=== PATIENT | male | born 1960 | race Two or more races ===

== ENCOUNTER 2019-07-28 13:00 | Outpatient (CLI) | payer OTHER | END 2019-07-28 14:45 | disposition home or self-care (01) | LOC: LAB 13:00 | DX: N50.819 Testicular pain, unspecified (principal); E72.29 Other disorders of urea cycle metabolism ==

== ENCOUNTER 2019-08-02 07:29 | Outpatient (CLI) | payer OTHER ==
[2019-08-02] MEDS ORDERED: JANUVIA100 MG (17:17)
[2019-08-02] MEDS ORDERED: LOTREL 10-20 M1 EACH (17:17)
[2019-08-02] MEDS ORDERED: SYNJARDY 5-1,01 EACH (17:18)
[2019-08-02] MEDS ORDERED: LANTUS SOL100 UNIT/1 (17:18)
[2019-08-02] MEDS ORDERED: LIPITOR20 MG (17:19)
[2019-08-02] MEDS ORDERED: OMEPRAZOLE20 MG (17:19)
== END 2019-08-02 11:50 | disposition home or self-care (01) ==
LOC: RAD 07:29
DX: N50.811 Right testicular pain (principal)

== ENCOUNTER 2019-08-02 16:27 | Emergency (ER) | payer OTHER ==
[~2019-08-02] VITALS: Ht 172.7 cm; Wt 98.9 kg
[2019-08-02] MEDS ORDERED: JANUVIA100 MG (17:17)
[2019-08-02] MEDS ORDERED: LOTREL 10-20 M1 EACH (17:17)
[2019-08-02] MEDS ORDERED: SYNJARDY 5-1,01 EACH (17:18)
[2019-08-02] MEDS ORDERED: LANTUS SOL100 UNIT/1 (17:18)
[2019-08-02] MEDS ORDERED: LIPITOR20 MG (17:19)
[2019-08-02] MEDS ORDERED: OMEPRAZOLE20 MG (17:19)
== END 2019-08-02 18:22 | disposition home or self-care (01) ==
LOC: ER 16:27
DX: N45.1 Epididymitis (principal)

== ENCOUNTER 2019-09-29 08:04 | Outpatient (CLI) | payer OTHER ==
[~2019-09-29 08:04] MED LIST: JANUVIA100 MG; LANTUS SOL100 UNIT/1; LIPITOR20 MG; LOTREL 10-20 M1 EACH; OMEPRAZOLE20 MG; SYNJARDY 5-1,01 EACH
== END 2019-09-29 09:00 | disposition home or self-care (01) ==
LOC: NUCLEAR 08:04
DX: R11.0 Nausea (principal); K29.30 Chronic superficial gastritis without bleeding
CPT/HCPCS: 78264; A9541